=== PATIENT | female | born 1965 | race Caucasian/White ===

== ENCOUNTER 2017-06-22 10:44 | Emergency (ER) | payer BC, OTHER ==
[2017-06-22 10:56] VITALS: BP 183/113
[2017-06-22] MEDS ORDERED: LORazepam 1 MG Tab PO ONE (11:37)
--- NOTE | 2017-06-22 11:46 | EDM.PDOC ---
ED HPI GENERAL MEDICAL PROBLEM - General Chief Complaint: General Stated Complaint: NEED BP CHECKED Time Seen by Provider: 06/22/17 11:02 Source of Information: Reports: Patient History Limitations: Reports: No Limitations - History of Present Illness INITIAL COMMENTS - FREE TEXT/NARRATIVE: Patient is a 52-year-old female with a history of anxiety in the past. As of recent has been quite stressed out with work and mother situation with placement to a new jail. Mother has dementia and has been calling approx. 50 times every day. Patient is the only family member close that can take care of her. Feels very overwhelmed with current situation. In the past her blood pressure was elevated secondary to anxiety. She's not been on any meds for quite some time. With meditation, quitting smoking, decreasing caffeine use, and getting this relieved all her symptoms. With elevated BP this morning she did take extra dose of Sectral. In total she took 400 mg today. The Sectral is for her palpitations. She's been taking this for quite some time. She denies any increased palpitations with onset of symptoms. She has no chest pain, vision changes, shortness of breath, nausea/vomiting, dizziness, abdominal pain, dysuria, no sitting to extremities, stiff neck, or any focal neurological deficits. Headache Pain Score (Numeric/FACES): 6 - Related Data Allergies Allergy/AdvReac Type Severity Reaction Status Date / Time Penicillins Allergy Anaphylactic Verified 06/22/17 10:56 Shock Home Meds: Home Meds Acebutolol [Sectral] 200 mg PO BID 06/22/17 [History] ClonazePAM [KlonoPIN] 0.25 mg PO BID PRN #14 tab.dis 06/22/17 [Rx] Past Medical History - Past Health History Medical/Surgical History: Denies Medical/Surgical History Cardiovascular History: Reports: Other (See Below) Other Cardiovascular History: palpitations Psychiatric History: Reports: Anxiety - Past Surgical History GI Surgical History: Reports: Appendectomy Social & Family History - Family History Family Medical History: Noncontributory - Tobacco Use Smoking Status *Q: Never Smoker Second Hand Smoke Exposure: No - Caffeine Use Caffeine Use: Reports: None - Recreational Drug Use Recreational Drug Use: No ED ROS GENERAL - Review of Systems Review Of Systems: See Below Constitutional: Reports: No Symptoms HEENT: Reports: No Symptoms. Denies: Vision Change Respiratory: Reports: No Symptoms Cardiovascular: Reports: Blood Pressure Problem (elevated today with anxiety), Palpitations. Denies: Chest Pain, Dyspnea on Exertion, Lightheadedness, Syncope GI/Abdominal: Reports: No Symptoms : Reports: No Symptoms Musculoskeletal: Reports: No Symptoms Skin: Reports: Dryness Neurological: Reports: Headache (mild global). Denies: Numbness, Tingling ED EXAM, GENERAL - Physical Exam Exam: See Below Exam Limited By: No Limitations General Appearance: Alert, WD/WN, Anxious (mildly anxious at times) Eye Exam: Bilateral Eye: EOMI, PERRL Ears: Hearing Grossly Normal Nose: Normal Inspection Throat/Mouth: Normal Voice, No Airway Compromise Neck: Normal Inspection, Supple Respiratory/Chest: No Respiratory Distress, Lungs Clear, Normal Breath Sounds, No Accessory Muscle Use, Chest Non-Tender Cardiovascular: Normal Peripheral Pulses, Regular Rate, Rhythm, No Murmur Peripheral Pulses: 4+: Radial (L), Radial (R) Neurological: Alert, Oriented, CN II-XII Intact, Normal Cognition, Normal Gait, No Motor/Sensory Deficits Psychiatric: Normal Affect, Anxious Skin Exam: Warm, Dry, Intact, Normal Color Course - Vital Signs Last Recorded V/S: Last Vital Signs Temp 98.4 F 06/22/17 10:50 Pulse 82 06/22/17 10:50 Resp 16 06/22/17 10:50 BP 183/113 H 06/22/17 10:50 Pulse Ox 100 06/22/17 10:50 - Orders/Labs/Meds Orders: Active Orders 24 hr Category Date Time Status EKG 12 Lead [EKG Documentation Completion] [RC] STAT Care 06/22/17 11:40 Active Meds: Medications Discontinued Medications Generic Name Dose Route Start Last Admin Trade Name Tate PRN Reason Stop Dose Admin Acetaminophen 975 mg 06/22/17 12:29 06/22/17 12:32 Tylenol PO 06/22/17 12:30 975 mg NOW ONE Administration Lorazepam 1 mg 06/22/17 11:37 06/22/17 11:42 Ativan PO 06/22/17 11:38 1 mg ONETIME ONE Administration - Re-Assessments/Exams Free Text/Narrative Re-Assessment/Exam: Patient feels the elevated BP is secondary to anxiety. We have discussed testing and treatment. We have elected to go ahead and treat with Ativan 1 mg by mouth. If this is not bringing the blood pressure down additional testing/tx may be required. I have also elected to obtain EKG. EKG sinus rhythm at a rate of [address] changes noted. No subcutaneous change from previous EKG obtained October 04, 2015. 1230 reassessment, patient's PCP has decreased to 139/90. She is feeling much better. Still has a mild headache. Ordered Tylenol 975 mg by mouth. 06/22/17 12:55 Patient is feeling much better after the above therapy. Will discharge patient home with instructions as documented. Departure - Departure Time of Disposition: 13:00 Disposition: Home, Self-Care 01 Condition: Good Clinical Impression: Anxiety attack, Elevated BP without diagnosis of hypertension - Discharge Information Prescriptions: ClonazePAM [KlonoPIN] 0.25 mg PO BID PRN #14 tab.dis PRN Reason: Anxiety Instructions: Panic Attacks, [id number], Hypertension, [id number], Preventing Hypertension Referrals: Navi Connell MD [Primary Care Provider] - Forms: ED Department Discharge Additional Instructions: As discussed do believe the elevation of blood pressure was atributial to anxiety symptoms. You received ativan 1mg PO here in the e.d. with significant decrease in anxiety symptoms and BP. BP on discharge was 126/88. Please continue to monitor BP daily with log kept. For anxiety will provide a short course of clonazepam 0.25mg twice a day as needed. No driving today since receiving a sedative medication in the E.D. Suggest no driving while taking the clonazepam. Make an appt Friday to be evaluated within the next week. Bring BP log and BP machine with you to the that appt. Discuss options for anxiety treatment with PCP. No alcohol with taking clonazepam. Return to the E.D. if you develop any new or worsening symptoms. - My Orders Last 24 Hours: My Active Orders 06/22/17 11:40 EKG 12 Lead [EKG Documentation Completion] [RC] STAT - Assessment/Plan Last 24 Hours: My Active Orders 06/22/17 11:40 EKG 12 Lead [EKG Documentation Completion] [RC] STAT
[2017-06-22] MEDS ORDERED: Acetaminophen 325 MG Tab PO ONE (12:29)
== END 2017-06-22 13:15 | disposition home or self-care (01) ==
LOC: JD.ED 10:44
DX: F41.9 Anxiety disorder, unspecified (principal); R03.0 Elevated blood-pressure reading, without diagnosis of hypertension; Z88.0 Allergy status to penicillin; Z79.899 Other long term (current) drug therapy
CPT/HCPCS: 93005; 99283; A9270